=== PATIENT | female | born 1985 | race American Indian/Alaskan Native ===

== ENCOUNTER 2020-02-02 08:45 | Inpatient (IN) | payer MEDICAID ==
[2020-02-02] MEDS ORDERED: LACTATED RINGERS 2,000 ML ONE (08:59)
[2020-02-02] MEDS ORDERED: ceFAZolin/Water 2 GM/20 ML 2 GM/20 ML SYRINGE IV ONE (09:36)
[2020-02-02 09:45] LABS: Basophils % (Auto) 0.3 % (0.0-1.8); Eosinophils % (Auto) 0.5 % (0.0-4.3); Hemoglobin 10.9 gm/dl (10.1-14.3); Lymphocytes # (Auto) 2.8 K/mm3 (1.2-5.4); Lymphocytes % (Auto) 31.5 % (13.4-35.0); Mean Corpuscular HGB Conc 33 % (30-34); Mean Corpuscular Volume 84 fl (79-97); Monocytes # (Auto) 0.6 K/mm3 (0.0-0.8); Monocytes % (Auto) 7.1 % (0.0-7.3); Platelet Count 348 K/mm3 (140-440); Red Blood Count 3.95 M/mm3 (3.65-5.03); Red Cell Distribution Width 16.8 % (13.2-15.2)
--- NOTE | 2020-02-02 09:53 | Anesthesia Day of Surgery ---
Anesthesia Day of Surgery - Day of Surgery Patient Examined: Yes Patient H&P Reviewed: Yes Patient is NPO: Yes Beta Blockers: No Cardiac Clearance: No Pulmonary Clearance: No Jaron's Test: N/A
--- NOTE | 2020-02-02 09:53 | Anesthesia Consultation ---
Anesthesia Consult and Med Hx Date of service: 02/02/20 - Airway Anesthetic Teeth Evaluation: Good ROM Head & Neck: Adequate Mental/Hyoid Distance: Adequate Mallampati Class: Class III Intubation Access Assessment: Probably Good - Pulmonary Exam CTA: Yes - Cardiac Exam Cardiac Exam: RRR - Pre-Operative Health Status ASA Pre-Surgery Classification: ASA2 Proposed Anesthetic Plan: Spinal - Pulmonary Hx Smoking: No Hx Asthma: No Hx Sleep Apnea: No - Cardiovascular System Hx Hypertension: No Hx Coronary Artery Disease: No Hx Heart Attack/AMI: No Hx Angina: No - Central Nervous System Hx Neuromuscular Disorder: Yes (bells palsy) Hx Seizures: No CVA: No Hx Back Pain: No Hx Psychiatric Problems: No - Gastrointestinal Hx Ulcer: No Hx Gastroesophageal Reflux Disease: No - Endocrine Hx Renal Disease: No Hx End Stage Renal Disease: No Hx Cirrhosis: No Hx Liver Disease: No Hx Insulin Dependent Diabetes: No Hx Non-Insulin Dependent Diabetes: No - Other Systems Hx Alcohol Use: No Hx Substance Use: No Hx Cancer: No
[2020-02-02] MEDS ORDERED: OXYTOCIN 20 UNIT/1000ML DRIP 20 UNITS/1,000 ML BAG IV SCH ×2 (10:00→14:00)
[2020-02-02] MEDS ORDERED: FAMOTIDINE 20 MG/2 ML INJ IV ONE (10:00)
[2020-02-02] MEDS ORDERED: BICITRA ORAL LIQD 30ML PO ONE (10:00)
[2020-02-02] MEDS ORDERED: METOCLOPRAMIDE 10 MG/2 ML INJ IV ONE (10:00)
[2020-02-02] MEDS ORDERED: LACTATED RINGERS 1,000 ML IV SCH (10:00)
[2020-02-02] MEDS ORDERED: diphenhydrAMINE 50 MG/ML VIAL IV PRN (11:38)
[2020-02-02] MEDS ORDERED: NALOXONE 0.4 MG/1 ML INJ IV PRN ×2 (11:38→13:09)
[2020-02-02] MEDS ORDERED: NalbUPHINE 10 MG/1 ML INJ IV PRN (11:38)
[2020-02-02] MEDS ORDERED: PROMETHAZINE 25 MG TAB PO PRN (11:38)
[2020-02-02] MEDS ORDERED: ONDANSETRON 4 MG/2 ML INJ IV PRN ×2 (11:38→13:09)
[2020-02-02] MEDS ORDERED: HYDROmorphone 1 MG/1 ML INJ IV PRN ×2 (11:38)
[2020-02-02] MEDS ORDERED: PROMETHAZINE 25 MG RECT SUPP PR PRN (11:38)
[2020-02-02] MEDS ORDERED: KETOROLAC 30 MG/1 ML INJ ONE (11:43)
[2020-02-02] MEDS ORDERED: DEXMEDETOMIDINE 200 MCG/2 ML VIAL IV ONE (11:43)
--- NOTE | 2020-02-02 12:03 | History and Physical Report ---
History of Present Illness Date of examination: 02/02/20 Date of admission: 02/02/20 08:45 Chief complaint: Here for a section History of present illness: 2 para 1. Previous . ROWENA February 06, 2020. Past History Past Surgical History: section - Obstetrical History Expected Date of Delivery: 02/06/20 Actual Gestation: 39 Week(s) 3 Day(s) : 2 Medications and Allergies Allergies Allergy/AdvReac Type Severity Reaction Status Date / Time No Known Allergies Allergy Unverified 02/02/20 09:07 Active Meds: Active Medications Diphenhydramine HCl (Benadryl) 12.5 mg IV Q2H PRN PRN Reason: Itching Hydromorphone HCl (Dilaudid) 0.5 mg IV Q5M PRN PRN Reason: BREAK Stop: 02/02/20 23:59 Hydromorphone HCl (Dilaudid) 0.5 mg IV Q4H PRN PRN Reason: breakthrough pain > 7/10 Oxytocin/Sodium Chloride (Pitocin/Ns 20 Unit/1000ml Drip) 20 units in 1,000 mls @ 0 mls/hr IV TITR KEERTHI Lactated Ringer's (Lactated Ringers) 1,000 mls @ 2,250 mls/hr IV PREOP KEERTHI Stop: 02/03/20 10:27 Last Admin: 02/02/20 10:00 Dose: 2,250 mls/hr Documented by: Nalbuphine HCl (Nalbuphine) 2.5 mg IV Q2H PRN PRN Reason: Itching Stop: 02/03/20 10:00 Naloxone HCl (Naloxone) 0.2 mg IV Q2MIN PRN PRN Reason: Res Rate </= 8 or 02 SAT < 92% Ondansetron HCl (Zofran) 4 mg IV Q8H PRN PRN Reason: Nausea And Vomiting Promethazine HCl (Phenergan) 25 mg PO Q6H PRN PRN Reason: Nausea And Vomiting Promethazine HCl (Phenergan) 25 mg MO Q6H PRN PRN Reason: Nausea And Vomiting Review of Systems All systems: negative - Vital Signs Vital signs: Vital Signs Pulse BP Pulse Ox 96 H 118/68 100 02/02/20 09:20 02/02/20 09:20 02/02/20 09:20 Temp Pulse Resp BP Pulse Ox 91 H 118/68 100 02/02/20 10:20 02/02/20 09:20 02/02/20 10:20 - Physical Exam Lungs: Positive: Normal air movement Abdomen: Positive: soft, distention. Negative: tenderness Deep Tendon Reflex Grade: Normal +2 - Obstetrical FHR: auscultation normal Results Result Diagrams: 02/02/20 09:17 Abnormal lab results 02/02/20 Range/Units 09:17 RDW 16.8 H (13.2-15.2) % All other labs normal. Assessment and Plan - Patient Problems (1) Term Current Visit: Yes Status: Acute (2) Previous section complicating Current Visit: Yes Status: Acute Plan to address problem: Pros and cons of a versus repeat were fully discussed. All patient's questions were answered. She gave consent to proceed with a as well as lysis of adhesions if there were in the operative field.
[2020-02-02] MEDS ORDERED: ceFAZolin 1 GM VIAL IV ONE (12:07)
[2020-02-02] MEDS ORDERED: PHENYLEPHRINE 10 MG/1 ML INJ SDV ONE (12:24)
[2020-02-02] MEDS ORDERED: ePHEDrine SULFATE 50 MG/1 ML INJ ONE (12:55)
[2020-02-02] MEDS ORDERED: LACTATED RINGERS 1,000 ML ONE ×2 (13:02→19:03)
[2020-02-02] MEDS ORDERED: ACETAMINOPHEN 325 MG TAB PO PRN (13:09)
[2020-02-02] MEDS ORDERED: WITCH HAZEL/ GLYCERIN PAD TP PRN (13:09)
[2020-02-02] MEDS ORDERED: MORPHINE 4 MG/1 ML INJ IV PRN (13:09)
[2020-02-02] MEDS ORDERED: LANOLIN/ZINC/DIMETHICONE (LANSINOH) 7 GM TP PRN (13:09)
--- NOTE | 2020-02-02 13:16 | Operative Report ---
Operative Report Operative Report: Date of surgery: February 02, 2020 Preoperative diagnoses: Term , previous section, probable ad hesions Postoperative diagnoses: The same. There were no peritoneal adhesions Operation: Lower segment transverse delivery Surgeon:Agatha Oliver MD Director Marketing Analytics: Matt Crocker CRNA Anesthesia: Spinal block Estimated blood loss: 700 mL Complications: None Findings: There was a live baby boy weighing 6 pounds 6 ounces, Apgars 8/9. The fetus was in vertex presentation. Both ovaries and fallopian tubes were grossly normal. The uterus was grossly normal. There were no adhesions found within the operative field. Bowels and greater omentum palpable through the Pfannenstiel incision were both grossly normal. Procedure in detail: The patient was taken to the operating room and given a spinal block. Patient was placed in the straight supine position and a Barnes catheter was inserted. The patient was prepped in the abdomen. The drapes were placed. A timeout was done. With the go ahead from the senior quality control technician, a Pfannenstiel incision was made. This incision was carried across the subcutaneous layer to the fascia which was also divided transversely. The recti abdominis muscle flaps were stripped from the fascia using a combination of blunt and sharp dissections. The muscles were in the midline to gain access to the anterior parietal peritoneum which was divided after excluding any underlying viscera. The access to the peritoneal cavity was then widened by manual stretching. The bladder blade was applied. The utero vesicle peritoneal flap was divided transversely allowing the bladder to be displaced caudally. The uterine incision was placed in the lower segment transversely. The uterine incision was carried to the decidual layer. The uterine incision was extended on both sides using the bandage scissors. The amniotic sac was ruptured with clear fluid. The head was lifted out of the false maternal pelvis and delivered through the incision using fundal pressure combined with traction using the Kiwi. The airways were bulb suctioned beginning with the mouth. Continuing fundal pressure combined with traction on the mandibular processes of the jaw delivered the rest of the baby. The umbilical cord was double clamped and divided. The baby was carefully transferred to the pediatric team. The placenta was manually removed from the uterine cavity. The uterine cavity was explored and was empty of any placental remnants. The uterine incision was repaired in 2 layers with #1 Vicryl. The surgical line on the uterus was hemostatic. Blood and clots were cleared from the peritoneal cavity. The anterior parietal peritoneum was repaired with #1 Vicryl. The fascia was repaired with #1 Vicryl. The subcutaneous layer was made hemostatic using the Bovie before the skin was closed subcuticularly with 4-0 Vicryl. There were no complications. The estimated blood loss was 700 mL. All sponges and instrument counts were correct. Patient was safely transferred to the recovery room.
--- NOTE | 2020-02-02 13:29 | Progress Note ---
Spinal Anesthesia Block - Spinal Anesthesia Block Start Time: 12:03 Stop Time: 12:12 Performed by:: MARIA VICTORIA MARLOW Procedure: Spinal anesthesia block is being performed for [C/S]. H&P, labs have been reviewed. Patient's questions and concerns have been answered. Informed consent has been performed. Timeout has was performed. Patient in sitting position on side of bed. Sterile prep and drape was performed. [3] mL 1% lidocaine skin wheal at L [3]-L [4]. Needle introducer advanced. 25-gauge spinal needle advanced, [+] CSF [-] blood. [11.25mg Marcaine and 10mcg Precedex] Spinal dose was given. All needles removed. Patient tolerated procedure well.
[2020-02-02] MEDS: LACTATED RINGERS 1,000 ML IV SCH (18:45)
[2020-02-02] MEDS: KETOROLAC 30 MG/1 ML INJ IV PRN (18:54)
--- NOTE | 2020-02-02 19:13 | Post Anesthesia Evaluation ---
- Post Anesthesia Evaluation Patient Participated: Yes Airway Patent: Yes Stable Respiratory Function: Yes Nausea/Vomiting: No Temp > 96.8F: Yes Pain Manageable: Yes Adequeate Hydration: Yes Anesthesia Complications: No Block Receding Appropriately: Yes Patient on Ventilator: No
[2020-02-02] MEDS: ceFAZolin/NS 1 GM/50 ML 1 GM/50 ML BAG IV SCH (20:31)
[2020-02-03] MEDS: KETOROLAC 30 MG/1 ML INJ IV PRN ×2 (00:23→06:15)
[2020-02-03 00:52] LABS: Hematocrit 24.2 % (30.3-42.9)
[2020-02-03] MEDS: LACTATED RINGERS 1,000 ML IV SCH (02:22)
[2020-02-03] MEDS: ceFAZolin/NS 1 GM/50 ML 1 GM/50 ML BAG IV SCH (03:57)
[2020-02-03] MEDS: PRENATAL VIT27-FE FUMARATE-FOLIC ACID VIT TAB PO SCH (09:08)
[2020-02-03] MEDS ORDERED: FERROUS SULFATE 325 MG TAB PO SCH (10:00)
[2020-02-03] MEDS ORDERED: SIMETHICONE 80 MG CHEW TAB PO PRN (10:53)
[2020-02-03] MEDS: HYDROcodone/ACETAMINOPHEN 5-325 MG TAB PO PRN ×2 (11:05→17:51)
--- NOTE | 2020-02-03 13:23 | Progress Note ---
Assessment and Plan - Patient Problems (1) Status post repeat low transverse section Current Visit: Yes Status: Acute Plan to address problem: Continue routine PP orders Keep drsg clean and dry, remove on POD#2 Anticipate d/c home in 24-48 hrs (2) Anemia Current Visit: Yes Status: Acute Qualifiers: Anemia type: other cause Other causes of anemia: acute posthemorrhagic Qualified Code(s): D62 - Acute posthemorrhagic anemia Plan to address problem: Asymptomatic Continue daily oral iron supplementation as directed Increase iron rich foods into diet Subjective - Subjective Date of service: 02/03/20 Principal diagnosis: S/P repeat C/S; POD#1 Interval history: See admission H & P and OB operative note Patient reports: appetite normal, voiding normally, pain well controlled (with medications), ambulating normally, no flatus, no bowel movement [place]: doing well, bottle feeding (and ) Objective - Vital Signs Latest vital signs: Vital Signs Temp Pulse Resp BP BP Pulse Ox 02/03/20 10:29 98 F 84 18 122/85 100 02/03/20 05:25 98.8 F 93 H 18 117/68 99 02/03/20 02:29 98.3 F 74 18 107/74 99 02/02/20 22:20 98.8 F 83 20 106/69 100 02/02/20 15:00 98.1 F 63 18 100/67 100 02/02/20 14:27 86 114/61 02/02/20 14:20 97.7 F 65 12 96/67 100 02/02/20 14:05 67 12 97/37 100 02/02/20 13:50 64 14 105/58 100 02/02/20 13:35 73 12 87/57 100 02/02/20 13:30 79 14 93/57 100 02/02/20 13:25 75 11 L 82/54 100 02/02/20 13:20 78 17 92/51 100 Intake and Output 02/02/20 02/03/20 02/03/20 23:59 07:59 15:59 Intake Total 530 952.083 240 Output Total 1200 1200 400 Balance -670 -247.917 -160 Intake: IV 50 952.083 ANCEF/NS 1 GM/50 ML 1 gm 50 In 50 ml @ 100 mls/hr IV Q8H KEERTHI Rx#:[id number] Lactated Ringers 1,000 ml 952.083 @ 125 mls/hr IV DIRECT KEERTHI Rx#:[id number] Oral 240 240 Intake, Free Water 240 Output: Urine 1200 1200 400 Indwelling Catheter 1200 800 400 Void 400 Other: Total, Intake Amount 240 240 Total, Output Amount 800 400 400 # Voids Void 1 - Exam Breasts: Present: normal Cardiovascular: Present: Regular rate Lungs: Present: Normal air movement Abdomen: Present: soft, tenderness Uterus: Present: firm, fundal height below umbilicus (U-1) Extremities: Present: edema Deep Tendon Reflex Grade: Normal +2 Incision: Present: dressed (no shadow drainage or bleeding noted) - Labs Labs: Abnormal lab results 02/03/20 Range/Units 00:40 Hgb 8.0 L (10.1-14.3) gm/dl Hct 24.2 L D (30.3-42.9) %
[2020-02-03] MEDS: IBUPROFEN 800 MG TAB PO PRN ×2 (15:41→21:53)
[2020-02-03] MEDS: FERROUS SULFATE 325 MG TAB PO SCH (21:53)
[2020-02-04] MEDS: HYDROcodone/ACETAMINOPHEN 5-325 MG TAB PO PRN ×2 (03:03→09:04)
[2020-02-04] MEDS: IBUPROFEN 800 MG TAB PO PRN ×2 (06:25→11:25)
[2020-02-04] MEDS: PRENATAL VIT27-FE FUMARATE-FOLIC ACID VIT TAB PO SCH (09:04)
[2020-02-04] MEDS: FERROUS SULFATE 325 MG TAB PO SCH (09:04)
--- NOTE | 2020-02-04 10:26 | Progress Note ---
Assessment and Plan A: PP Day #2 Asymptomatic Anemia P: Follow Routine PostOp Orders Continue PO FeSO4 Depo Provera 150mg IM x 1 dose prior to discharge D/c Home today per patient request RTO in One Week Subjective - Subjective Date of service: 02/04/20 Principal diagnosis: S/P repeat C/S; POD#1 Patient reports: appetite normal, voiding normally, pain well controlled, flatus, ambulating normally [place]: doing well, bottle feeding (and ) Objective - Vital Signs Latest vital signs: Vital Signs Temp Pulse Resp BP BP Pulse Ox 02/04/20 09:04 18 02/04/20 07:54 98.3 F 98 H 18 113/81 96 02/04/20 06:25 18 02/04/20 03:03 18 02/04/20 00:11 98.9 F 85 20 114/74 97 02/03/20 21:53 18 02/03/20 16:29 97.8 F 76 18 116/69 100 02/03/20 12:20 98.6 F 75 18 125/80 100 02/03/20 10:29 98 F 84 18 122/85 100 Intake and Output 02/03/20 02/04/20 02/04/20 22:59 06:59 14:59 Intake Total 480 120 240 Output Total 640 Balance -160 120 240 Intake: Oral 480 120 240 Output: Urine 640 Void 640 Other: Total, Intake Amount 240 120 240 Total, Output Amount 240 # Voids Void 1 1 - Exam Breasts: Present: normal Cardiovascular: Present: Regular rate Lungs: Present: Clear to auscultation, Normal air movement Abdomen: Present: normal appearance, soft, normal bowel sounds Uterus: Present: normal, firm, fundal height below umbilicus Extremities: Present: normal Incision: Present: normal, dry, intact
--- NOTE | 2020-02-04 10:27 | Discharge Summary ---
Providers - Providers Date of Admission: 02/02/20 08:45 Date of discharge: 02/04/20 Attending physician: MC DERAS MD Primary care physician: [employer] Hospitalization Reason for admission: section Delivery: Procedure: repeat low transverse Episiotomy: none Laceration: none Incision: normal, dry, intact Other procedures: none complications: none Discharge diagnosis: IUP at term delivered [place] baby: male Condition at discharge: Good Disposition: DC-01 TO HOME OR SELFCARE Plan - Discharge Medications Prescriptions: HYDROcodone/APAP 5-325 [[place] 5/325] 1 each PO Q4HR PRN #30 tablet PRN Reason: Pain - Provider Discharge Summary Activity: routine, no sex for 6 weeks, no heavy lifting 4 weeks Diet: routine Instructions: routine Additional instructions: [] Smoking cessation referral if applicable(refer to patient education folder for contact #) [] Refer to [facility]'s [facility] Booklet Call your doctor immediately for: * Fever > 100.5 * Heavy vaginal bleeding ( >1 pad per hour) * Severe persistent headache * Shortness of breath * Reddened, hot, painful area to leg or breast * Drainage or odor from incision. * Keep incision clean and dry at all times and follow doctor's instructions regarding bathing/showering - Follow up plan Follow up: LEEANNA LORENZ MD [Staff Physician] - 7 Days Forms: [facility] Discharge Summary, Discharge Signature Page
[2020-02-04] MEDS ORDERED: medroxyPROGESTERone ACETATE 150 MG/ML SYRINGE IM ONE (11:00)
[2020-02-04 13:03] VITALS: BP 111/78
== END 2020-02-04 13:27 | disposition home or self-care (01) | DRG 765 ==
LOC: APU 08:45 → EDBD 08:45 → OB 14:41
PROVIDERS: ADMIT Obstetrics & Gynecology; ATTEND Obstetrics & Gynecology
PROC: 10D00Z1 Extraction of Products of Conception, Low, Open Approach (ICD-10-PCS; principal; 2020-02-02)
DX: O34.211 Maternal care for low transverse scar from previous cesarean delivery (principal); D62 Acute posthemorrhagic anemia; Z3A.39 39 weeks gestation of pregnancy; Z37.0 Single live birth; O90.81 Anemia of the puerperium
CPT/HCPCS: 36415; 85014; 85018; 85025; 86850; 86900; 86901; G0378; J0690; J1050; J1885; J2270; J2370; J2405; J2590; J2765; J3490; J7120